=== PATIENT | female | born 1970 | race African-American/Black ===

== ENCOUNTER 2019-06-16 11:55 | Emergency (ER) | payer OTHER ==
[~2019-06-16] VITALS: Ht 157.5 cm; Wt 62.1 kg
[2019-06-16 11:59] VITALS: Ht 157.5 cm; Wt 62.1 kg
[2019-06-16 14:52] VITALS: BP 117/67
== END 2019-06-16 14:52 | disposition home or self-care (01) ==
LOC: ED 11:55
DX: M94.0 Chondrocostal junction syndrome [Tietze] (principal); F17.210 Nicotine dependence, cigarettes, uncomplicated